=== PATIENT | female | born 1970 | race Caucasian/White ===

== ENCOUNTER 2017-09-26 08:59 | Outpatient (CLI) | payer BC | END 2017-09-26 09:00 | disposition home or self-care (01) | LOC: BICMAMMO 08:59 | PROVIDERS: ATTEND Student in an Organized Health Care Education/Training Program | DX: Z12.31 Encounter for screening mammogram for malignant neoplasm of breast (principal); Z80.3 Family history of malignant neoplasm of breast | CPT/HCPCS: 77063; 77067 ==

== ENCOUNTER 2019-01-01 08:36 | Day surgery (SDC) | payer BC ==
[2019-01-01] MEDS ORDERED: Acetaminophen 500 MG TAB PO PRN ×2 (08:52)
[2019-01-01] MEDS ORDERED: Vedolizumab 300 MG in Sodium Chloride 0.9% 250 ML 250 ML IVPB SCH (09:00)
[2019-01-01] MEDS ORDERED: Sodium Chloride 0.9% 1,000 ML IV SCH (09:00)
[2019-01-01 09:04] VITALS: BP 125/78; TEMP 98.9
== END 2019-01-01 10:29 | disposition home or self-care (01) ==
LOC: ONC/OP 08:36
PROVIDERS: ATTEND Internal Medicine Gastroenterology
DX: K51.00 Ulcerative (chronic) pancolitis without complications (principal); Z88.8 Allergy status to other drugs, medicaments and biological substances
CPT/HCPCS: 96413

== ENCOUNTER 2019-02-14 09:00 | Day surgery (SDC) | payer BC ==
[~2019-02-14 09:00] MED LIST: Acetaminophen 500 MG TAB PO PRN; diphenhydrAMINE 25 MG CAP PO PRN
[2019-02-14] MEDS ORDERED: Sodium Chloride 0.9% 20 ML ONE (09:07)
[2019-02-14] MEDS ORDERED: Ustekinumab 390 MG in Sodium Chloride 0.9% 250 ML 172 ML IV SCH (09:30)
[2019-02-14 09:37] VITALS: BP 120/70; TEMP 98.8
== END 2019-02-14 10:40 | disposition home or self-care (01) ==
LOC: ONC/OP 09:00
PROVIDERS: ATTEND Internal Medicine Gastroenterology
DX: K51.00 Ulcerative (chronic) pancolitis without complications (principal); Z88.8 Allergy status to other drugs, medicaments and biological substances
CPT/HCPCS: 96413; Q0163